=== PATIENT | female | born 1970 | race Caucasian/White ===

== ENCOUNTER 2021-05-06 16:59 | Emergency (ER) | payer SELFPAY ==
--- NOTE | 2021-05-06 19:33 | EDM.PDOC ---
ED HPI GENERAL MEDICAL PROBLEM - General Chief Complaint: Fever Stated Complaint: DAY 3 OF FEVER LOWEST 100 HIGHEST 104 Time Seen by Provider: 05/06/21 20:02 Source of Information: Reports: Patient History Limitations: Reports: No Limitations - History of Present Illness INITIAL COMMENTS - FREE TEXT/NARRATIVE: Fever for 4 days, Tmax 104. Associated chills and sweating. No other symptoms. No exposures to people with infections. Covid Vaccinated since November. No exposures to Covid. No history of immuno-compromised conditions. - Related Data Allergies Allergy/AdvReac Type Severity Reaction Status Date / Time No Known Allergies Allergy Verified 05/06/21 19:33 Home Meds: Home Meds NK [No Known Home Meds] 05/06/21 [History] ED ROS GENERAL - Review of Systems Review Of Systems: See Below Constitutional: Reports: Fever, Chills, Diaphoresis HEENT: Reports: No Symptoms Respiratory: Reports: No Symptoms Cardiovascular: Reports: No Symptoms Endocrine: Reports: No Symptoms GI/Abdominal: Reports: No Symptoms : Reports: No Symptoms Musculoskeletal: Reports: Muscle Pain, Muscle Stiffness Skin: Reports: No Symptoms Neurological: Reports: No Symptoms Psychiatric: Reports: No Symptoms Hematologic/Lymphatic: Reports: No Symptoms Immunologic: Reports: No Symptoms ED EXAM, SEPSIS - Physical Exam Exam: See Below Exam Limited By: No Limitations General Appearance: Alert, WD/WN, No Apparent Distress Ears: Normal External Exam, Normal Canal, Normal TMs Nose: Normal Inspection Throat/Mouth: Normal Inspection, Normal Lips, Normal Teeth Neck: Normal Inspection, Supple, Non-Tender Respiratory/Chest: No Respiratory Distress, Lungs Clear, Normal Breath Sounds Cardiovascular: Normal Peripheral Pulses, Regular Rate, Rhythm GI/Abdominal Exam: Normal Bowel Sounds, Soft, Non-Tender, No Organomegaly Skin: Warm, Dry, Intact. No: Rash Course - Vital Signs Text/Narrative:: The patient was assessed. VSS including normal temp. General appearance is good. Rest of exam is normal. Labs = Leukopenia of 3.6 [place] [address], U/A is normal. Covid and influenza are negative. Patient has a probable viremia and will get better in two days. She will drink lots of fluids and treat fever. She will have a repeat CBC in one week, sooner if problems. She will return to the ER as needed for problems. Last Recorded V/S: Last Vital Signs Temp 36.4 C 05/06/21 19:30 Pulse 94 05/06/21 19:30 Resp 18 05/06/21 19:30 BP 95/60 05/06/21 19:30 Pulse Ox 94 L 05/06/21 19:30 - Orders/Labs/Meds Orders: Active Orders 24 hr Category Date Time Status Isolation [COMM] Routine Oth 05/06/21 19:49 Ordered Labs: Laboratory Tests 05/06/21 05/06/21 05/06/21 Range/Units 19:58 20:17 20:22 WBC 3.6 L (4.5-11.0) K/uL RBC 5.16 (3.30-5.50) M/uL Hgb 14.7 (12.0-15.0) g/dL Hct 43.7 (36.0-48.0) % MCV 85 (80-98) fL MCH 29 (27-31) pg MCHC 34 (32-36) % Plt Count 77 L (150-400) K/uL Neut % (Auto) 80.7 H (36-66) % Lymph % (Auto) 14.2 L (24-44) % [place] % (Auto) 3.1 (2-6) % Eos % (Auto) 0.3 L (2-4) % Baso % (Auto) 1.7 H (0-1) % Urine Color Yellow (YELLOW) Urine Appearance Clear (CLEAR) Urine pH 6.0 (5.0-8.0) Ur Specific [place] 1.015 (1.008-1.030) Urine Protein 30 H (NEGATIVE) mg/dL Urine Glucose (UA) Negative (NEGATIVE) mg/dL Urine Ketones Negative (NEGATIVE) mg/dL Urine Occult Blood Trace-intact H (NEGATIVE) Urine Nitrite Negative (NEGATIVE) Urine Bilirubin Negative (NEGATIVE) Urine Urobilinogen 2.0 H (0.2-1.0) EU/dL Ur Leukocyte Esterase Negative (NEGATIVE) Urine RBC 0-5 (0-5) Urine WBC 0-5 (0-5) Ur Epithelial Cells Moderate Amorphous Sediment Occasional Urine Bacteria Few Urine Mucus Occasional Urinalysis Comment See note SARS-CoV-2 RNA (LIANG) Negative (NEGATIVE) Departure - Departure Time of Disposition: 21:42 Disposition: Home, Self-Care 01 Condition: Good Clinical Impression: Viral illness - Discharge Information Instructions: Viral Illness, Adult Referrals: PCP,None [Primary Care Provider] - Forms: ED Department Discharge Sepsis Event Note (ED) - Evaluation Sepsis Screening Result: No Definite Risk - Focused Exam Vital Signs: Vital Signs Temp Pulse Resp BP Pulse Ox 05/06/21 19:30 36.4 C 94 18 95/60 94 L - My Orders Last 24 Hours: My Active Orders 05/06/21 19:49 Isolation [COMM] Routine - Assessment/Plan Last 24 Hours: My Active Orders 05/06/21 19:49 Isolation [COMM] Routine
== END 2021-05-06 21:50 | disposition home or self-care (01) ==
LOC: JP.ED 16:59
DX: B34.9 Viral infection, unspecified (principal); Z20.822 Contact with and (suspected) exposure to COVID-19
CPT/HCPCS: 36415; 81001; 85025; 87804; 87804-59; 99283; U0002